=== PATIENT | female | born 1975 | race Caucasian/White ===

== ENCOUNTER 2022-02-08 06:08 | Emergency (ER) | payer SELFPAY ==
--- NOTE | 2022-02-08 06:29 | ERPHSYRPT ---
- History of Present Illness Source: patient Exam Limitations: no limitations Timing/Duration: week(s) (1), worse Cough Quality/Degree: no cough Possible Cause: no prior episodes Associated Symptoms: dizziness, headache, sore throat, No chest pain/soreness, No cough, No shortness of breath Hx Tetanus, Diphtheria Vaccination/Date Given: Yes Hx Influenza Vaccination/Date Given: Yes <LAKESHA OLIVER - Last Filed: 02/08/22 06:24> <MAME GEORGES - Last Filed: 02/08/22 08:14> - History of Present Illness Time Seen by Provider: 02/08/22 06:15 Physician History: This is a 46-year-old white female patient of Dr. Bullock who presents with sore throat and dizziness as well as malaise and fatigue. Last week, patient was experiencing a sore throat and went to the [facility] and a rapid strep test was initially negative but the culture returned positive. Patient went to see her [facility] physician and was given an injection of Rocephin at the office followed by a prescription of Augmentin which the patient completed. This morning, the patient had a hard time waking up because she is feeling so fatigued and tired. She also felt achy all over, dizzy and had a sore throat as well. She denies abdominal pain. She denies cough. (LAKESHA OLIVER) Allergies/Adverse Reactions: No Known Drug Allergies Allergy (Verified 02/08/22 06:28) Home Medications: Naproxen 500 mg [Naprosyn 500 MG] 500 mg PO Q6H PRN PRN 01/13/13 [History] Escitalopram Oxalate [Lexapro 10 MG] 10 mg PO HS 03/23/21 [History] Norgestimate-Ethinyl Estradiol [Tri-Estarylla Tablet] 1 tab PO DAILY 02/08/22 [History] Rizatriptan Benzoate [Maxalt Quality Assurance Supervisor] 10 mg PO Q12H PRN PRN 02/08/22 [History] Ropinirole HCl 1 mg PO HS 02/08/22 [History] Topiramate 25 mg [Topamax 25 MG] 1 tab PO BID 02/08/22 [History] Travel Risk - International Travel Have you traveled outside of the country in past 3 weeks: No - Coronavirus Screening Are you exhibiting any of the following symptoms?: Yes Symptoms: Headaches/Body Aches/Fatigue Close contact with a COVID-19 positive Pt in past 14-21 Days: No <LAKESHA OLIVER - Last Filed: 02/08/22 06:24> - Review of Systems Constitutional: Malaise, Weakness Eyes: No Symptoms Ears, Nose, & Throat: Throat Pain Respiratory: No Symptoms Cardiac: No Symptoms Abdominal/Gastrointestinal: No Symptoms Genitourinary Symptoms: No Symptoms Musculoskeletal: No Symptoms Neurological: Dizziness, Headache Psychological: No Symptoms Endocrine: No Symptoms Hematologic/Lymphatic: No Symptoms Immunological/Allergic: No Symptoms All Other Systems: Reviewed and Negative <LAKESHA OLIVER - Last Filed: 02/08/22 06:24> - Past Medical History Pertinent Past Medical History: Yes Neurological History: Migraines ENT History: No Pertinent History Cardiac History: No Pertinent History Respiratory History: No Pertinent History Endocrine Medical History: No Pertinent History Musculoskeletal History: No Pertinent History GI Medical History: No Pertinent History History: No Pertinent History Psycho-Social History: Anxiety Female Reproductive Disorders: Other Other Medical History: ovarian cysts - Past Surgical History Past Surgical History: Yes Neuro Surgical History: No Pertinent History Cardiac: No Pertinent History Respiratory: No Pertinent History Gastrointestinal: No Pertinent History Genitourinary: No Pertinent History Musculoskeletal: No Pertinent History Female Surgical History: Other Other Surgical History: cysts removed from ovaries - Social History Smoking Status: Never smoker Exposure to second hand smoke: No Drug Use: none Patient Lives Alone: No <LAKESHA OLIVER - Last Filed: 02/08/22 06:24> - Physical Exam General Appearance: no apparent distress, alert, anxiety Eye Exam: PERRL/EOMI, eyes nml inspection Ears, Nose, Throat Exam: normal ENT inspection, moist mucous membranes Neck Exam: normal inspection, non-tender, supple, full range of motion Respiratory Exam: normal breath sounds, lungs clear, airway intact, No chest tenderness, No respiratory distress Cardiovascular Exam: regular rate/rhythm, normal heart sounds, normal peripheral pulses Gastrointestinal/Abdomen Exam: soft, normal bowel sounds, No tenderness Pelvic Exam: not done Rectal Exam: not done Back Exam: normal inspection, normal range of motion, No CVA tenderness, No vertebral tenderness Extremity Exam: normal inspection, normal range of motion, pelvis stable Neurologic Exam: alert, oriented x 3, cooperative, sprinkler worker II-XII nml as tested, normal mood/affect, nml cerebellar function, nml station & gait, sensation nml Skin Exam: normal color, warm, dry Lymphatic Exam: No adenopathy SpO2 Interpretation: normal SpO2: 98 O2 Delivery: Room Air <LAKESHA OLIVER - Last Filed: 02/08/22 06:24> - Nursing Vital Signs Nursing Vital Signs: Initial Vital Signs Temperature 97.9 F 02/08/22 06:14 Pulse Rate 100 H 02/08/22 06:14 Respiratory Rate 18 02/08/22 06:14 Blood Pressure 126/58 02/08/22 06:14 O2 Sat by Pulse Oximetry 98 02/08/22 06:14 Pain Scale Pain Intensity 2 - Course Nursing assessment & vital signs reviewed: Yes <LAKESHA OLIVER - Last Filed: 02/08/22 06:24> Ordered Tests: Active Orders 24 hr Category Date Time Status CULTURE,URINE Stat Lab 02/08/22 06:56 Received [place] Screen Stat Lab 02/08/22 07:00 Completed UA W/RFX CULTURE Stat Lab 02/08/22 06:56 Completed Lab/Rad Data: Laboratory Results 02/08/22 02/08/22 02/08/22 Range/Units 07:00 07:00 07:00 Urinalys Dipstick Clnc Urine Color (YELLOW) Urine Appearance (CLEAR) Urine pH (5-6) Ur Specific [place] (1.005-1.025) POC Urine Protein Conf (Negative) Urine Ketones (NEGATIVE) Urine Nitrite (NEGATIVE) Urine Bilirubin (NEGATIVE) Urine Urobilinogen (0-1) mg/dL Urine Leukocytes (NEGATIVE) Urine WBC (Auto) (0-5) /HPF Urine RBC (Auto) (0-2) /HPF U Epithel Cells (Auto) (FEW) /HPF Urine Bacteria (Auto) (NEGATIVE) /HPF Urine RBC (0-5) Cj/ul Urine Mucus (Auto) (NEGATIVE) /HPF Ur Culture Indicated? Urine Glucose (NEGATIVE) mg/dL Monoscreen NEGATIVE (Negative) Influenza Type A Ag NEGATIVE (NEGATIVE) Influenza Type B Ag NEGATIVE (NEGATIVE) RSV (PCR) NEGATIVE (Negative) SARS-CoV-2 (PCR) NEGATIVE (NEGATIVE) Group A Strep Antibody NOT DETECTED (NEGATIVE) 02/08/22 Range/Units 06:56 Urinalys Dipstick Clnc MAIN LAB Urine Color YELLOW (YELLOW) Urine Appearance CLEAR (CLEAR) Urine pH 8.5 (5-6) Ur Specific [place] 1.015 (1.005-1.025) POC Urine Protein Conf TRACE (Negative) Urine Ketones NEGATIVE (NEGATIVE) Urine Nitrite NEGATIVE (NEGATIVE) Urine Bilirubin NEGATIVE (NEGATIVE) Urine Urobilinogen 0.2 (0-1) mg/dL Urine Leukocytes TRACE (NEGATIVE) Urine WBC (Auto) 3-5 (0-5) /HPF Urine RBC (Auto) 6-10 (0-2) /HPF U Epithel Cells (Auto) RARE (FEW) /HPF Urine Bacteria (Auto) NONE (NEGATIVE) /HPF Urine RBC TRACE NON-HEM (0-5) Cj/ul Urine Mucus (Auto) SLIGHT (NEGATIVE) /HPF Ur Culture Indicated? YES Urine Glucose NEGATIVE (NEGATIVE) mg/dL Monoscreen (Negative) Influenza Type A Ag (NEGATIVE) Influenza Type B Ag (NEGATIVE) RSV (PCR) (Negative) SARS-CoV-2 (PCR) (NEGATIVE) Group A Strep Antibody (NEGATIVE) - Progress Progress: unchanged Air Movement: good Counseled pt/family regarding: lab results, diagnosis, need for follow-up <LAKESHA OLIVER - Last Filed: 02/08/22 06:24> - Progress Progress: unchanged <MAME GEORGES - Last Filed: 02/08/22 08:14> - Progress Progress Note: 02/08/22 06:32 Care of this patient is being transferred to Dr. Georges at shift change. He was advised of the work-up ordered and he will follow-up on those results and make final disposition. (LAKESHA OLIVER) - Departure Departure Disposition: Home Critical Care Time: No <LAKESHA OLIVER - Last Filed: 02/08/22 06:24> - Departure Critical Care Time: No <MAME GEORGES - Last Filed: 02/08/22 08:14> - Departure Clinical Impression: Sore throat, Headache, Urinary tract infection Condition: Stable Referrals: GUILLERMO BULLOCK DO [Primary Care Provider] - Follow up/PCP as directed Prescriptions: Cephalexin Mh 500 mg [Keflex 500 mg] 500 mg PO QID #40 cap
[2022-02-08 07:16] LABS: Epithelial Cells RARE /HPF (FEW); Mucus SLIGHT /HPF (NEGATIVE)
[2022-02-08 07:17] LABS: Appearance CLEAR (CLEAR); Bilirubin NEGATIVE (NEGATIVE); Glucose NEGATIVE (NEGATIVE); Ketones NEGATIVE (NEGATIVE); Specific Gravity 1.015 (1.005-1.025)
[2022-02-08 07:18] LABS: Dipstick done @ ? MAIN LAB; Nitrite NEGATIVE (NEGATIVE); Ph 8.5 (5-6); Protein,Urine Dip TRACE (Negative); RBC TRACE NON-HEM Ery/ul (0-5); Urobilinogen 0.2 mg/dL (0-1)
[2022-02-08 07:39] LABS: INFLUENZA A NEGATIVE (NEGATIVE); INFLUENZA B NEGATIVE (NEGATIVE); RESPIRATORY SYNCTIAL VIRUS NEGATIVE (Negative); SARS-CoV-2 Xpert Express NEGATIVE (NEGATIVE)
[2022-02-08 07:52] LABS: Urine Cultured Indicated? YES
[2022-02-08 08:34] VITALS: BP 136/83; PULSE 94; O2SAT 99
== END 2022-02-08 08:34 | disposition home or self-care (01) ==
LOC: ED 06:08
DX: N39.0 Urinary tract infection, site not specified (principal); J02.9 Acute pharyngitis, unspecified; R51.9 Headache, unspecified; R42 Dizziness and giddiness; R53.83 Other fatigue; Z79.899 Other long term (current) drug therapy
CPT/HCPCS: 0241U; 36415; 81015; 86308; 87086; 87651; 99282

== ENCOUNTER 2022-04-15 17:37 | Emergency (ER) | payer OTHER ==
--- NOTE | 2022-04-15 18:42 | ERPHSYRPT ---
- History of Present Illness Time Seen by Provider: 04/15/22 18:37 Source: patient, family Exam Limitations: no limitations Patient Subjective Stated Complaint: C/O cough Triage Nursing Assessment: Patient ambulated back to ED. She is alert and gregory ented. NO SOB. Patient has a forceful, non-productive cough. Patient coughs when attempting to take a deep breath to auscultate lung sounds. Physician History: Pt has cough past few days , no SObreath. abdirizak diet. some mild N or no V. CHest is clear Ht is reg without Murmur. Abd soft nontender without mass or peritoneal signs. no nodes . pharyynx erythematous. no rash. Timing/Duration: day(s) Cough Quality/Degree: moderate, dry cough Possible Cause: no prior episodes Modifying Factors: Improves With: nothing Associated Symptoms: cough, muscle aches, nasal congestion Allergies/Adverse Reactions: No Known Drug Allergies Allergy (Verified 04/15/22 17:53) Home Medications: Naproxen 500 mg [Naprosyn 500 MG] 500 mg PO Q6H PRN PRN 01/13/13 [History] Escitalopram Oxalate [Lexapro 10 MG] 10 mg PO HS 03/23/21 [History] Norgestimate-Ethinyl Estradiol [Tri-Estarylla Tablet] 1 tab PO DAILY 02/08/22 [History] Rizatriptan Benzoate [Maxalt Clinical Social Work Therapist] 10 mg PO Q12H PRN PRN 02/08/22 [History] Ropinirole HCl 1 mg PO HS 02/08/22 [History] Topiramate 25 mg [Topamax 25 MG] 1 tab PO BID 02/08/22 [History] Aspirin [Aspirin EC] 1 tab PO DAILY 04/15/22 [History] Hx Tetanus, Diphtheria Vaccination/Date Given: Yes Hx Influenza Vaccination/Date Given: No Hx Pneumococcal Vaccination/Date Given: No Immunizations Up to Date: Yes Travel Risk - International Travel Have you traveled outside of the country in past 3 weeks: No - Coronavirus Screening Are you exhibiting any of the following symptoms?: Yes Symptoms: Fever, Cough: New Onset Close contact with a COVID-19 positive Pt in past 14-21 Days: No - Vaccine Status Have you recieved a Covid-19 vaccination: Yes Spice Fumigator: Vecast - Review of Systems Constitutional: No Fever, No Chills Eyes: No Symptoms Ears, Nose, & Throat: No Symptoms Respiratory: Cough, No Dyspnea Cardiac: No Chest Pain, No Edema, No Syncope Abdominal/Gastrointestinal: Nausea, No Abdominal Pain, No Vomiting, No Diarrhea Genitourinary Symptoms: No Dysuria Musculoskeletal: No Back Pain, No Neck Pain Skin: No Rash Neurological: No Dizziness, No Focal Weakness, No Sensory Changes Psychological: No Symptoms Endocrine: No Symptoms Hematologic/Lymphatic: No Symptoms Immunological/Allergic: No Symptoms All Other Systems: Reviewed and Negative - Past Medical History Pertinent Past Medical History: Yes Neurological History: Migraines ENT History: No Pertinent History Cardiac History: No Pertinent History Respiratory History: No Pertinent History Endocrine Medical History: No Pertinent History Musculoskeletal History: No Pertinent History GI Medical History: Other History: No Pertinent History Psycho-Social History: Anxiety Female Reproductive Disorders: Other Other Medical History: ovarian cysts, c-diff - Past Surgical History Past Surgical History: Yes Neuro Surgical History: No Pertinent History Cardiac: No Pertinent History Respiratory: No Pertinent History Gastrointestinal: No Pertinent History Genitourinary: No Pertinent History Musculoskeletal: No Pertinent History Female Surgical History: Other Other Surgical History: cysts removed from ovaries - Social History Smoking Status: Never smoker Exposure to second hand smoke: No Drug Use: none Patient Lives Alone: No - Female History Hx Last Menstrual Period: Few weeks ago Hx Now: No - Nursing Vital Signs Nursing Vital Signs: Initial Vital Signs Temperature 98 F 04/15/22 17:56 Pulse Rate 75 04/15/22 17:56 Respiratory Rate 19 04/15/22 17:56 Blood Pressure 150/84 04/15/22 17:56 O2 Sat by Pulse Oximetry 100 04/15/22 17:56 Pain Scale Pain Intensity 0 - Physical Exam General Appearance: no apparent distress, alert Eye Exam: PERRL/EOMI, eyes nml inspection Ears, Nose, Throat Exam: normal ENT inspection, TMs normal, moist mucous membranes, pharyngeal erythema Neck Exam: normal inspection, non-tender, supple, full range of motion Respiratory Exam: normal breath sounds, lungs clear, No respiratory distress, No crackles/rales, No rhonchi, No wheezing, No stridor Cardiovascular Exam: regular rate/rhythm, normal heart sounds Gastrointestinal/Abdomen Exam: soft, No tenderness Pelvic Exam: deferred Rectal Exam: deferred Back Exam: normal inspection, No CVA tenderness, No vertebral tenderness Extremity Exam: normal inspection, normal range of motion Neurologic Exam: alert, oriented x 3, cooperative, normal mood/affect, sensation nml, No motor deficits Skin Exam: normal color, warm, dry, No rash Lymphatic Exam: No adenopathy SpO2 Interpretation: normal SpO2: 100 O2 Delivery: Room Air - Course Nursing assessment & vital signs reviewed: Yes Ordered Tests: Medication Summary Discontinued Medications Generic Name Dose Route Start Last Admin Trade Name Freq PRN Reason Stop Dose Admin Hydrocodone Bitart/Acetaminophen 15 ml 04/15/22 19:21 04/15/22 19:24 Hydrocodone/Acetaminophen 5 Ml Udcup PO 04/15/22 19:22 15 ml STAT STA Administration Hydrocodone Bitart/Acetaminophen Confirm 04/15/22 19:23 Hydrocodone/Acetaminophen 5 Ml Udcup Administered 04/15/22 19:24 Dose 15 ml .ROUTE .STK-MED ONE Lab/Rad Data: Laboratory Results 04/15/22 04/15/22 Range/Units 18:40 18:40 Influenza Type A Ag NEGATIVE (NEGATIVE) Influenza Type B Ag NEGATIVE (NEGATIVE) RSV (PCR) POSITIVE (Negative) SARS-CoV-2 (PCR) NEGATIVE (NEGATIVE) Group A Strep Antibody NOT DETECTED (NEGATIVE) - Progress Progress: improved, re-examined Air Movement: good Progress Note: 04/15/22 19:36 symptoms have improved. discussed steroid burst with pt and she wishes to try as well as some tessolon. Blood Culture(s) Obtained: No Antibiotics given: No Counseled pt/family regarding: lab results, diagnosis, need for follow-up - Departure Departure Disposition: Home Clinical Impression: RSV (respiratory syncytial virus infection) Condition: Good Critical Care Time: No Referrals: GUILLERMO ARMENDARIZ DO [Primary Care Provider] - Follow up/PCP as directed Instructions: Cough, Adult (DC), Respiratory Syncytial Virus, Adult (DC) Additional Instructions: Follow-up with your , return meantime or see if not improving, short of breath, or other symptoms of concern. Prescriptions: Benzonatate 100 mg PO Q8H PRN PRN #20 cap PRN Reason: Cough Methylprednisolone Packet [Medrol Dosepack] 4 mg PO UD #30 packet
[2022-04-15] MEDS ORDERED: HYDROCODONE-ACETAMIN 2.5-108/5 ML SOLUTION PO STA (19:21)
[2022-04-15] MEDS ORDERED: HYDROCODONE-ACETAMIN 2.5-108/5 ML SOLUTION ONE (19:23)
[2022-04-15 19:25] LABS: INFLUENZA A NEGATIVE (NEGATIVE); INFLUENZA B NEGATIVE (NEGATIVE); SARS-CoV-2 Xpert Express NEGATIVE (NEGATIVE)
[2022-04-15 19:30] LABS: RESPIRATORY SYNCTIAL VIRUS POSITIVE (Negative)
[2022-04-15] MEDS ORDERED: DELTASONE 20 MG PO ONE (19:50)
[2022-04-15] MEDS ORDERED: Tessalon Perles 100 MG PO PRN (19:51)
[2022-04-15] MEDS ORDERED: Tessalon Perles 100 MG PO ONE (19:52)
[2022-04-15] MEDS ORDERED: DELTASONE 20 MG ONE (19:52)
[2022-04-15 20:06] VITALS: BP 147/89; PULSE 76; O2SAT 98
== END 2022-04-15 20:06 | disposition home or self-care (01) ==
LOC: ED 17:37
DX: J06.9 Acute upper respiratory infection, unspecified (principal); B97.4 Respiratory syncytial virus as the cause of diseases classified elsewhere; R05.1 Acute cough; R11.0 Nausea; Z79.52 Long term (current) use of systemic steroids; Z79.899 Other long term (current) drug therapy
CPT/HCPCS: 0241U; 87651; 99283; A9270-GY

== ENCOUNTER 2022-11-02 13:36 | Emergency (ER) | payer OTHER ==
[2022-11-02 15:19] LABS: Absolute Neutrophil Ct (ANC) 2.67 x10^3/uL (1.4-6.9); BASOPHIL % 0.3 % (0.0-0.4); Basophil (Absolute #) 0.02 x10^3/uL (0-0.4); Eosinophil % 4.1 % (0.00-5.0); Eosinophil (Absolute #) 0.29 x10^3/uL (0-0.5); Hematocrit 36.5 % (35-47); Hemoglobin 11.9 g/dL (12.0-16.0); IMMATURE GRAN # 0.03 x10^3u/L (0.00-0.03); IMMATURE GRAN % 0.4 % (0.00-0.4); Lymphocyte (Absolute #) 3.46 x10^3/uL (1.0-4.6); Lymphocytes % 48.7 % (24.0-44.0); Mean Cell Volume 94.6 fL (78-100); Mean Corpuscular Hemoglobin 30.8 pg (26-32); Mean Corpuscular Hgb Concent. 32.6 g/dL (32-36); Mean Platelet Volume 10.1 fL (7.5-11.0); Monocyte (Absolute #) 0.63 x10^3/uL (0.0-1.3); Monocytes % 8.9 % (0.0-12.0); Neutrophil % 37.6 % (36.0-66.0); Platelet Count 263 x10^3/uL (150-450); Red Blood Count 3.86 x10^6/uL (4.1-5.4); Red Cell Distribution Width 12.4 % (11.5-14.0); White Blood Count 7.1 x10^3/uL (4.0-10.5)
[2022-11-02 15:22] VITALS: PULSE 72
[2022-11-02 15:36] LABS: ALBUMIN 4.1 g/dL (3.5-5.0); ALKALINE PHOSPHATASE 70 U/L (38-126); ANION GAP 14.4 MEQ/L (5-15); BLOOD UREA NITROGEN 17 mg/dL (7-17); CHLORIDE 105 mmol/L (98-107); Calcium 9.1 mg/dL (8.4-10.2); Carbon Dioxide 24 mmol/L (22-30); Creatinine 1 0.77 mg/dL (0.52-1.04); EST GLOMERULAR FILTRATION RATE > 60.0 ML/MIN; Glucose 96 mg/dL (74-106); Potassium 3.4 mmol/L (3.5-5.1); SGOT/AST 34 U/L (14-36); SGPT/ALT 23 U/L (0-35); SODIUM 140 mmol/L (137-145); Total Protein 7.9 g/dL (6.3-8.2)
[2022-11-02 15:37] LABS: INR 0.84 (0.8-3.0); PROTIME 9.3 SECONDS (9.4-12.5); PTT 25.9 SECONDS (25.1-36.5)
[2022-11-02 16:07] VITALS: BP 158/90; O2SAT 98
--- NOTE | 2022-11-02 16:49 | XRAY ---
Indication: Right jugular thrombus. Multiple contiguous axial images obtained through the neck using 80 cc Isovue 370 contrast. Comparison: None Parotid and submandibular glands are bilaterally symmetric. A few subcentimeter cervical and submandibular lymph nodes, none pathologically enlarged. Thyroid gland enhances homogeneously. Major arteries and veins are normal in course and caliber. Supra and infraglottic airway widely patent. Visualized osseous structures and cervical spine intact. A few left dental amalgams produces beam artifact. Base of brain unremarkable. CT chest reported separately. Impression: Normal CT neck with contrast exam.
--- NOTE | 2022-11-02 16:51 | XRAY ---
Indication: Right jugular thrombus. Multiple contiguous axial images obtained through the chest using 80 cc Isovue 370 contrast. Comparison: None Lungs clear with incidental minimal bilateral dependent atelectasis. Heart not enlarged. Aorta is normal in course and caliber. No central pulmonary embolus. No pathologic mediastinal/hilar/axillary lymphadenopathy. Bony thorax intact. Limited upper abdomen including adrenal glands are unremarkable. CT neck reported separately. Impression: Normal CT chest with contrast exam.
--- NOTE | 2022-11-02 19:56 | ERPHSYRPT ---
- History of Present Illness Patient Subjective Stated Complaint: Pt had her thyroid US yesterday and Dr. Bullock called her to tell her that she has a blood clot in her neck and she sent her to the ER Triage Nursing Assessment: Pt brought self to the ER, hypertensive, denies pain, pt was told by Dr. Bullock to come to the ER for evaluation and additional testing, Dr. Alcantara has already sent her in an prescription for Eliquis, pulses normal, skin n/w/d, pt denies ever having a blood clot, doesn't appear to be in any distress Physician History: 47 yo WF w incidental tiny nonoccluding clot R jugular vein per thyroid us yesterday sent to ER by Dr. Blulock for anticoagulation. Pt denies h/o DVT/PE and also denies chest pain/dyspnea/lower extremity edema/pain. Timing/Duration: yesterday Associated Symptoms: denies symptoms Allergies/Adverse Reactions: No Known Drug Allergies Allergy (Verified 11/02/22 13:55) Home Medications: Naproxen 500 mg [Naprosyn 500 MG] 500 mg PO Q6H PRN PRN 01/13/13 [History] Escitalopram Oxalate [Lexapro 10 MG] 10 mg PO HS 03/23/21 [History] Norgestimate-Ethinyl Estradiol [Tri-Estarylla Tablet] 1 tab PO DAILY 02/08/22 [History] Rizatriptan Benzoate [Maxalt Staffing Manager] 10 mg PO Q12H PRN PRN 02/08/22 [History] Ropinirole HCl 1 mg PO HS 02/08/22 [History] Topiramate 25 mg [Topamax 25 MG] 50 mg PO BID 02/08/22 [History] Aspirin [Aspirin EC] 1 tab PO DAILY 04/15/22 [History] Levothyroxine Sodium 25 Mcg [Synthroid 25 Mcg] 25 mcg PO DAILY 11/02/22 [History] Hx Tetanus, Diphtheria Vaccination/Date Given: Yes Hx Influenza Vaccination/Date Given: No Hx Pneumococcal Vaccination/Date Given: No Travel Risk - International Travel Have you traveled outside of the country in past 3 weeks: No - Coronavirus Screening Are you exhibiting any of the following symptoms?: No Close contact with a COVID-19 positive Pt in past 14-21 Days: No - Vaccine Status Have you recieved a Covid-19 vaccination: Yes Advisory Intern: Pixel[employer] - Review of Systems Constitutional: No Symptoms Eyes: No Symptoms Ears, Nose, & Throat: No Symptoms Respiratory: No Symptoms Cardiac: No Symptoms Abdominal/Gastrointestinal: No Symptoms Genitourinary Symptoms: No Symptoms Musculoskeletal: No Symptoms Skin: No Symptoms Neurological: No Symptoms Psychological: No Symptoms Endocrine: No Symptoms Hematologic/Lymphatic: No Symptoms Immunological/Allergic: No Symptoms - Past Medical History Pertinent Past Medical History: Yes Neurological History: Migraines ENT History: No Pertinent History Cardiac History: Deep Vein Thrombosis Respiratory History: No Pertinent History Endocrine Medical History: No Pertinent History Musculoskeletal History: No Pertinent History GI Medical History: Other History: No Pertinent History Psycho-Social History: Anxiety Female Reproductive Disorders: Other Other Medical History: ovarian cysts, c-diff - Past Surgical History Past Surgical History: Yes Neuro Surgical History: No Pertinent History Cardiac: No Pertinent History Respiratory: No Pertinent History Gastrointestinal: No Pertinent History Genitourinary: No Pertinent History Musculoskeletal: No Pertinent History Female Surgical History: Other Other Surgical History: cysts removed from ovaries - Social History Smoking Status: Never smoker Exposure to second hand smoke: No Drug Use: none Patient Lives Alone: No - Female History Hx Last Menstrual Period: 10/06/2022 Hx Now: No - Nursing Vital Signs Nursing Vital Signs: Initial Vital Signs Temperature 97.8 F 11/02/22 13:43 Blood Pressure 141/86 11/02/22 13:43 O2 Sat by Pulse Oximetry 97 11/02/22 13:43 Pain Scale Pain Intensity 0 Hypertensive - Physical Exam General Appearance: no apparent distress Eye Exam: PERRL/EOMI, eyes nml inspection Ears, Nose, Throat Exam: normal ENT inspection, TMs normal, pharynx normal, moist mucous membranes Neck Exam: normal inspection, non-tender, supple, full range of motion, No meningismus, No mass, No Brudzinski, No Kernig's, No carotid bruit Respiratory Exam: normal breath sounds, lungs clear, airway intact, No respiratory distress Cardiovascular Exam: regular rate/rhythm, normal heart sounds, normal peripheral pulses, capillary refill <2 sec, No murmur Gastrointestinal/Abdomen Exam: soft, normal bowel sounds, No tenderness Back Exam: normal inspection, normal range of motion Extremity Exam: normal inspection, normal range of motion Neurologic Exam: alert, oriented x 3, cooperative, estate planning paralegal II-XII nml as tested, normal mood/affect, nml cerebellar function, nml station & gait, sensation nml Skin Exam: normal color, warm, dry Lymphatic Exam: No adenopathy SpO2 Interpretation: normal SpO2: 98 O2 Delivery: Room Air - Course Nursing assessment & vital signs reviewed: Yes - Radiology Ultrasound Exam Other Ultrasound: Other (Venous doppler R jugular neg per tech) Ordered Tests: Active Orders 24 hr Category Date Time Status IV Insertion STAT Care 11/02/22 16:08 Active CHEST WITH CONTRAST [CT] Stat Exams 11/02/22 16:05 Completed NECK WITH CONTRAST [CT] Stat Exams 11/02/22 16:06 Completed VENOUS UNILAT/LIMITED EXTREMIT [US] Stat Exams 11/02/22 18:04 Taken CBC W DIFF Stat Lab 11/02/22 15:18 Completed CMP Stat Lab 11/02/22 15:18 Completed PROTIME WITH INR Stat Lab 11/02/22 15:18 Completed PTT Stat Lab 11/02/22 15:18 Completed Lab/Rad Data: Laboratory Result Diagrams 11/02/22 15:18 11/02/22 15:18 Laboratory Results 11/02/22 11/02/22 11/02/22 Range/Units 15:18 15:18 15:18 WBC 7.1 (4.0-10.5) x10^3/uL RBC 3.86 L (4.1-5.4) x10^6/uL Hgb 11.9 L (12.0-16.0) g/dL Hct 36.5 (35-47) % MCV 94.6 (78-100) fL MCH 30.8 (26-32) pg MCHC 32.6 (32-36) g/dL RDW 12.4 (11.5-14.0) % Plt Count 263 (150-450) x10^3/uL MPV 10.1 (7.5-11.0) fL Gran % 37.6 (36.0-66.0) % Immature Gran % (Auto) 0.4 (0.00-0.4) % Nucleat RBC Rel Count 0.0 (0.00-0.1) % Eos # (Auto) 0.29 (0-0.5) x10^3/uL Immature Gran # (Auto) 0.03 (0.00-0.03) x10^3u/L Absolute Lymphs (auto) 3.46 (1.0-4.6) x10^3/uL Absolute Monos (auto) 0.63 (0.0-1.3) x10^3/uL Absolute Nucleated RBC 0.00 (0.00-0.01) x10^3u/L Lymphocytes % 48.7 H (24.0-44.0) % Monocytes % 8.9 (0.0-12.0) % Eosinophils % 4.1 (0.00-5.0) % Basophils % 0.3 (0.0-0.4) % Absolute Granulocytes 2.67 (1.4-6.9) x10^3/uL Basophils # 0.02 (0-0.4) x10^3/uL PT 9.3 L (9.4-12.5) SECONDS INR 0.84 (0.8-3.0) APTT 25.9 (25.1-36.5) SECONDS Sodium 140 (137-145) mmol/L Potassium 3.4 L (3.5-5.1) mmol/L Chloride 105 (98-107) mmol/L Carbon Dioxide 24 (22-30) mmol/L Anion Gap 14.4 (5-15) MEQ/L BUN 17 (7-17) mg/dL Creatinine 0.77 (0.52-1.04) mg/dL Estimated GFR > 60.0 ML/MIN Glucose 96 (74-106) mg/dL Calcium 9.1 (8.4-10.2) mg/dL Total Bilirubin 0.20 (0.2-1.3) mg/dL AST 34 (14-36) U/L ALT 23 (0-35) U/L Alkaline Phosphatase 70 (38-126) U/L Serum Total Protein 7.9 (6.3-8.2) g/dL Albumin 4.1 (3.5-5.0) g/dL - Progress Progress Note: 11/02/22 20:01 Nursing note and vital signs reviewed No food or housing insecurities noted Additional history per Dr. Bullock called before pt arrived and stated that she wanted pt anticoagulated w Lovenox and that she would start pt on Eliquis Thyroid US results reviewed w tiny R jugular non-occluding thrombus Spoke w Dr. Cunningham, 911 operator at , who stated that pt needed Eliquis and CT of neck/chest w IV contrast to r/o malignancy CT neck/chest neg per Dr. Rodriguez Unable to speak w Dr. Rodriguez about previous US results US of R jugular done wo evidence of thrombus Pt asymptomatic wo evidence of thrombus on CT neck and jugular us per tech 11/02/22 20:07 Counseled pt/family regarding: lab results, diagnosis, need for follow-up, rad results Medical Desision Making - Independent Historian Additional History obtained from: Spouse - Diagnostic Testing Radiological Interpretation: Reviewed by me - Risk of complications Low Risk: Low risk of morbidity from additional dx testing or treatment - Departure Departure Disposition: Home Clinical Impression: Well adult exam Condition: Stable Critical Care Time: No Referrals: GUILLERMO BULLOCK, [Primary Care Provider] - Follow up/PCP as directed Additional Instructions: Follow up with Dr. Bullock Return to ER as needed
--- NOTE | 2022-11-03 08:42 | XRAY ---
Indication: Left jugular thrombosis.. Two-dimensional sonogram and color Doppler imaging of the major venous vessels of the left upper extremity performed. Comparison: None Visualized left jugular, subclavian, axillary, basilic, brachial, median cubital, cephalic, radial, and ulnar veins are negative for thrombosis. Normal venous waveforms. Impression: Left upper extremity negative for venous thrombosis. Comment: Preliminary report was given.
== END 2022-11-02 20:04 | disposition home or self-care (01) ==
LOC: ED 13:36
DX: Z03.89 Encounter for observation for other suspected diseases and conditions ruled out (principal); Z86.718 Personal history of other venous thrombosis and embolism; Z79.899 Other long term (current) drug therapy
CPT/HCPCS: 36000; 36415; 70491; 71260; 80053; 85025; 85610; 85730; 93971; 99284